=== PATIENT | male | born 1955 | race Caucasian/White ===

== ENCOUNTER → 2022-09-05 08:32 | Outpatient (BNVA) | payer MEDICAID, SELFPAY | PROVIDERS: Family Provider Nurse Practitioner Family; Referring Provider Nurse Practitioner; Visit Provider Podiatrist Foot & Ankle Surgery | DX: S62.305A Unspecified fracture of fourth metacarpal bone, left hand, initial encounter for closed fracture (principal); X58.XXXA Exposure to other specified factors, initial encounter; Z79.84 Long term (current) use of oral hypoglycemic drugs; E11.9 Type 2 diabetes mellitus without complications; R60.9 Edema, unspecified | CPT/HCPCS: 99204 ==

== ENCOUNTER → 2022-09-26 09:22 | Outpatient (BNVA) | payer MEDICAID, SELFPAY | PROVIDERS: Family Provider Nurse Practitioner Family; Visit Provider Podiatrist Foot & Ankle Surgery | DX: S92.302A Fracture of unspecified metatarsal bone(s), left foot, initial encounter for closed fracture (principal); X58.XXXA Exposure to other specified factors, initial encounter; E11.9 Type 2 diabetes mellitus without complications; R60.9 Edema, unspecified; Z79.84 Long term (current) use of oral hypoglycemic drugs | CPT/HCPCS: 73630; 99213 ==

== ENCOUNTER → 2022-10-22 14:29 | Outpatient (BNVA) | payer MEDICAID, SELFPAY | PROVIDERS: Family Provider Nurse Practitioner Family; Visit Provider Podiatrist Foot & Ankle Surgery | DX: S92.342A Displaced fracture of fourth metatarsal bone, left foot, initial encounter for closed fracture (principal); X58.XXXA Exposure to other specified factors, initial encounter | CPT/HCPCS: 73630; 99213 ==

== ENCOUNTER → 2022-11-05 15:04 | Outpatient (BNVA) | payer MEDICAID, SELFPAY | PROVIDERS: Family Provider Nurse Practitioner Family; Visit Provider Podiatrist Foot & Ankle Surgery | DX: S92.302A Fracture of unspecified metatarsal bone(s), left foot, initial encounter for closed fracture (principal); X58.XXXA Exposure to other specified factors, initial encounter | CPT/HCPCS: 99213 ==

== ENCOUNTER → 2022-12-02 10:57 | Outpatient (BNVA) | payer MEDICAID, SELFPAY | PROVIDERS: Family Provider Nurse Practitioner Family; Referring Provider Nurse Practitioner; Visit Provider Orthopaedic Surgery | DX: M48.062 Spinal stenosis, lumbar region with neurogenic claudication (principal) | CPT/HCPCS: 72110; 99204 ==

== ENCOUNTER 2022-12-11 08:47 | Outpatient (CLI) | payer MEDICAID, SELFPAY ==
--- NOTE | 2022-12-11 09:12 | MR_ITS ---
WS: [id number] MRI LUMBAR SPINE NONCONTRAST HISTORY: ABNORMAL FINDING ON DIAGNOSTIC OF CENTRAL NERVOUS SYSTEM SYSTEM COMPARISON: Radiograph 12/02/2022 lumbar spine TECHNIQUE: Sagittal and axial multisequence imaging is submitted. Localizer image demonstrates narrowing of the cervical canal. C3-4 mild stenosis. C6-7 central disc p rotrusion and at least moderate central stenosis. Additional disc protrusions at T7-8 and T8-9. Mild straightening of the normal lumbar lordosis. L4 retrolisthesis by 2 mm. Moderate disc space narr owing at L4-5. Reactive marrow edema along the L4 and L5 endplates. No acute fractures. Conus terminates normally at L1. L1-L2: Very mild foraminal encroachment predominantly by facet disease. No high-grade stenosis. L2-L3: Mild annular disc bulging, ligamentum flavum and facet arthritis. Mild bilateral subarticular recess encroachment. Affecting the L3 traversing nerve roots. L3-L4: Moderate annular disc bulging with osteophytic ridging, ligamentum flavum hypertrophy and kate ed facet arthritis. RIGHT foraminal disc protrusion with contact on the RIGHT L3 and L4 nerve roots. Mild central stenosis also due to the degenerative changes and mild LEFT subarticular recess encroach ment upon the traversing L4 nerve root. L4-L5: Mild retrolisthesis of L4. Osteophytic ridging and annular disc bulging. Small central disc pr otrusion extends just inferior to the disc space. Moderate central stenosis. Disc extrusion is contac ting the traversing L5 nerve roots in the subarticular recesses. Additional moderate to severe bilate ral foraminal stenosis. L5-S1: Mild disc bulging with a central protrusion. Mild encroachment upon the S1 nerve roots, RIGHT greater than LEFT. Mild bilateral subarticular recess and foraminal stenosis. MR/MR lumbar spine wo con* [id number] IMPRESSION: 1. Advanced degenerative disc disease at L4-5. 2. Moderate central and bilateral subarticular recess stenosis at L4-5 due to combination of disc, facet and osteophyte disease. 3. Moderate to severe bilateral foraminal stenosis at C4-5. 4. Mild bilateral subarticular recess encroachment at L3-4 contacting the og ersing L3 nerve roots. 5. RIGHT foraminal disc protrusion at L3-4 contacting the RIGHT L3 and L4 nerv e roots. 6. Mild central, subarticular recess and foraminal stenosis at L3-4.
== END 2022-12-11 08:48 | disposition home or self-care (01) ==
PROVIDERS: PCP Nurse Practitioner; Visit Provider Nurse Practitioner
DX: M51.36 Other intervertebral disc degeneration, lumbar region (principal); M48.061 Spinal stenosis, lumbar region without neurogenic claudication; M47.816 Spondylosis without myelopathy or radiculopathy, lumbar region; M51.26 Other intervertebral disc displacement, lumbar region
CPT/HCPCS: 72148

== ENCOUNTER → 2022-12-23 13:12 | Outpatient (BNVA) | payer MEDICAID, SELFPAY | PROVIDERS: PCP Nurse Practitioner; Visit Provider Orthopaedic Surgery | DX: M48.062 Spinal stenosis, lumbar region with neurogenic claudication (principal) | CPT/HCPCS: 99214 ==

== ENCOUNTER → 2023-01-14 09:40 | Outpatient (BNVA) | payer MEDICAID, SELFPAY | PROVIDERS: PCP Nurse Practitioner; Visit Provider Anesthesiology Pain Medicine | DX: M48.062 Spinal stenosis, lumbar region with neurogenic claudication (principal); M79.605 Pain in left leg | CPT/HCPCS: 99205 ==

== ENCOUNTER → 2023-02-04 14:34 | Outpatient (BNVA) | payer MEDICAID, SELFPAY | PROVIDERS: PCP Nurse Practitioner; Visit Provider Anesthesiology Pain Medicine | DX: M54.16 Radiculopathy, lumbar region (principal); M48.062 Spinal stenosis, lumbar region with neurogenic claudication | CPT/HCPCS: 64483; 64484; J1100; J3490 ==

== ENCOUNTER → 2023-02-18 13:01 | Outpatient (BNVA) | payer MEDICAID, SELFPAY | PROVIDERS: PCP Nurse Practitioner; Visit Provider Anesthesiology Pain Medicine | DX: M54.16 Radiculopathy, lumbar region (principal); M48.062 Spinal stenosis, lumbar region with neurogenic claudication | CPT/HCPCS: 64483; 64484; J1100; J3490 ==

== ENCOUNTER → 2023-03-09 08:46 | Outpatient (BNVA) | payer MEDICAID, SELFPAY | PROVIDERS: PCP Nurse Practitioner; Visit Provider Podiatrist Foot & Ankle Surgery | DX: S92.302D Fracture of unspecified metatarsal bone(s), left foot, subsequent encounter for fracture with routine healing; X58.XXXD Exposure to other specified factors, subsequent encounter | CPT/HCPCS: 99213 ==

== ENCOUNTER → 2025-03-21 08:24 | Outpatient (BNVA) | payer MEDICAID, SELFPAY | PROVIDERS: PCP Nurse Practitioner; Visit Provider Orthopaedic Surgery | DX: M25.561 Pain in right knee (principal); M25.562 Pain in left knee; M17.0 Bilateral primary osteoarthritis of knee; M10.9 Gout, unspecified; E11.9 Type 2 diabetes mellitus without complications; Z79.84 Long term (current) use of oral hypoglycemic drugs | CPT/HCPCS: 73560; 73565; 99204 ==

== ENCOUNTER 2025-05-02 13:04 | Inpatient (IN) | payer MEDICAID, SELFPAY ==
[2025-05-02] VITALS (8 sets, daily range): BP systolic 103–139; BP diastolic 60–85; PULSE 95–147; RESP 17–27; TEMP 36.4–40.4; O2SAT 89–98; BMI 29.8
--- NOTE | 2025-05-02 13:08 | XRR_ITS ---
PROCEDURE INFORMATION: Exam: XR Chest Exam date and time: 05/02/2025 1:28 PM Age: 69 years old Clinical indication: Other: AMS; Additional info: Weakness TECHNIQUE: Imaging protocol: Radiologic exam of the chest. Views: 1 view. COMPARISON: No relevant prior studies available. FINDINGS: Lungs: Low lung volumes. No focal consolidation. Pleural spaces: No pleural effusion or pneumothorax. Heart/Mediastinum: No cardiomegaly. Bones/joints: No acute osseous abnormality. Gastrointestinal tract: Nonspecific bowel gas in the left upper quadrant. XR/XR chest 1V portable [id number] IMPRESSION: No acute pulmonary process.
--- NOTE | 2025-05-02 13:15 | PC.NURSE ---
upon triage, took patients temp orally and read 97.6. patient felt hot to the touch, reported to provider dr. tim that temp did not seem accurate. reported to primary nurse, jose, and advised rectal temp. primary nurse verbalized understanding and took rectal temp of 104.8 and reported to provider.
--- NOTE | 2025-05-02 13:15 | ECG_ITS ---
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 Measurements Intervals [place] Rate: 140 P: 21 [place]: 113 QRS: 39 QRSD: 92 T: 41 QT: 305 QTc: 466 Interpretive Statements SINUS TACHYCARDIA WITH SHORT [place] INTERVAL, POSSIBLE ATRIAL FLUTTER MINIMAL ST DEPRESSION [0.025+ mV ST DEPRESSION] No previous ECG available for comparison Electronically Signed On 05-03-2025 16:54:30 CDT by Gabo Diaz M.D. [email or web address] [id number]
--- NOTE | 2025-05-02 13:19 | W.ED.AMS ---
HPI - Altered Mental Status General: Chief Complaint: Altered Mental Status Stated Complaint: AMS Time Seen by Provider: 05/02/25 13:14 History of Present Illness: 69-year-old man with a history of dementia, hypertension, diabetes, COPD, gout, GERD and hyperlipidemia who presents to the emergency room with altered mental status. Family says he has been declining for about 3 days now. Patient is febrile with a temp of 104.8 on presentation. He is tachycardic. Confused and somewhat agitated. No focal deficits. He has dementia but since Thursday he has been shaky and hot to the touch. Foul urine smell. He is not following commands at this time. He is ambulatory with assistance Related Data Home Medications ?Medication ?Instructions ?Recorded ?Confirmed lisinopril 10 mg tablet 10 mg PO DAILY 09/05/22 05/02/25 metformin 1,000 mg tablet 1,000 mg PO BIDWMEAL 09/05/22 05/02/25 pantoprazole 40 mg tablet,delayed 40 mg PO DAILY 09/05/22 05/02/25 release cetirizine 10 mg tablet 10 mg PO DAILY 03/21/25 05/02/25 cholecalciferol (vitamin D3) 50 50 mcg PO DAILY 03/21/25 05/02/25 mcg (2,000 unit) capsule fluticasone propionate 50 1 spray intranasal DAILY 03/21/25 05/02/25 mcg/actuation nasal spray,suspension olopatadine 0.2 % eye drops 1 drp ophthalmic (eye) DAILY 03/21/25 05/02/25 simvastatin 40 mg tablet 40 mg PO QPM 03/21/25 05/02/25 solifenacin 10 mg tablet 10 mg PO DAILY 05/02/25 05/02/25 Previous Rx's ?Medication ?Instructions ?Recorded Cam boot #1 ea 09/26/22 Allergies Allergy/AdvReac Type Severity Reaction Status Date / Time Penicillins Allergy Mild ADR-Itching Verified 03/21/25 08:44 Review of Systems General: Reports: ROS unobtainable due to medical condition and ROS unobtainable due to mental status [facility] PFSH: Family History Brother Stroke Father Stroke Social History (Reviewed 05/02/25 @ 08:58 by CLINTON Pham Smoking and tobacco/nicotine status: former use of tobacco/nicotine Physical Exam Narrative: General: Alert, Skin: Warm, dry. Head: Normocephalic, atraumatic. Neck: Supple, trachea midline. Eye: Extraocular movements are intact. Ears, nose, mouth and throat: mucosa moist. Cardiovascular: Regular, tachycardic, normal peripheral perfusion. Respiratory: Lungs are clear to auscultation, respirations are non-labored, breath sounds are equal, Symmetrical chest wall expansion. Gastrointestinal: Soft, Nontender, Non distended Musculoskeletal: Normal ROM, no deformity. Neurological: Patient is alert but very confused. No localizing deficits. No facial droop. No slurred speech. No focal extremity deficits. Psychiatric: Patient is somewhat agitated Course Vital Signs: Vital signs: Vital Signs Temperature 104.8 F H 05/02/25 13:55 Pulse Rate 113 H 05/02/25 16:50 Respiratory Rate 17 05/02/25 16:50 Blood Pressure 128/70 05/02/25 16:50 Pulse Oximetry 97 05/02/25 16:50 Oxygen Delivery Me thod Room Air 05/02/25 16:50 MDM - Altered Mental Status Medical Decision Making Medical decision making: Differential diagnosis including but not limited to and based on the above HPI, review of systems and physical exam: In this patient with altered mental status: Stroke. Hypoglycemia. Metabolic encephalopathy. Infections such as pneumonia, urinary tract infection, Covid-19, Influenza. Electrolyte abnormalities such as hypernatremia. Renal failure / uremia. Hepatic encephalopathy. Hypoxemia. Hypercapnic respiratory failure. Psychosis. Drug or alcohol intoxication. Medication overdose. Orders placed to evaluate differential diagnosis based on the above differential, HPI and physical exam EKG: Time 1315. Rate 140. A flutter versus sinus tachycardia, minimal ST changes, no ectopy, normal [place] & QRS intervals, This was reviewed and interpreted by myself the ER physician at 1320 Chest x-ray: No acute process. No infiltrate. No pneumothorax. This was reviewed and interpreted by myself the emergency room physician. I also reviewed the radiology report. Lab Review: Laboratory results were reviewed and interpreted by myself the emergency room physician. Significant leukocytosis with a white count of 17,000. This was reported around 1340. That in combination with confusion and tachycardia I have ordered 2 L normal saline bolus and broad-spectrum antibiotics at that time. Also his initial lactate was elevated at 3 and was come down to 1.5. I reviewed the patient's medical record. 69-year-old man with a history of dementia, hypertension, diabetes, COPD, gout, GERD and hyperlipidemia. Patient has had visits with orthopedics and podiatry but apparently does not receive primary care services from this facility Reexamination: Patient's tachycardia has improved some. Heart rate is down to 117. Systolic blood pressure is 126. No oxygen requirements. He is somewhat somnolent as he received some Haldol because he was quite agitated. Consultation: I spoke with Dr. Ordonez who is on-call for the hospital service who agrees to admission. Assessment and plan: Sepsis Encephalopathy Fever Metabolic encephalopathy ?Patient has received fluids for tachycardia. ?IV Tylenol for fever. ?5 mg IV Haldol for agitation which is improved his symptoms quite a bit. ?No clear source at this point urine is negative. Chest x-ray is clear. Flu COVID and RSV are negative. Treating as presumed sepsis anyway as he is tachycardic encephalopathic and febrile. -2.5 L normal saline bolus. Fluid volumes based on ideal body weight. -Broad-spectrum antibiotics were administered. Meropenem and Zyvox -Sepsis quality measures. -Lactic acid with a reflex was ordered. -Blood cultures were ordered. ?I reevaluated the patient's volume status after sepsis fluids were given. -I discussed the patient with the hospitalist on-call who is admitting the patient. - Discussed findings and plan with patient. Answered any questions. - All laboratory values were reviewed and interpreted personally by myself, the ER physician - All imaging was reviewed and interpreted personally by myself, the ER physician. - Evaluation and treatment of this problem were appropriate in the emergency setting Critical Care: -I spent a total of 44 minutes of critical care time managing the patient, independent of any other practitioner. -The time involved in the performance of separately reportable procedures was not counted towards critical care time. Lab Data 05/02/25 13:25 05/02/25 13:25 Radiology Impressions Chest X-Ray 05/02/25 13:08 IMPRESSION: No acute pulmonary process. Head CT 05/02/25 13:34 IMPRESSION: 1. No acute intracranial hemorrhage or edema. 2. Mild to moderate cerebral and cerebellar atrophy. 3. Moderate small vessel disease. Laboratory Results WBC 16.95 10^3/uL (3.29-11.43) H 05/02/25 13:25 RBC 4.70 10^6/uL (3.85-5.65) 05/02/25 13:25 Hgb 14.10 g/dL (11.27-16.99) 05/02/25 13:25 Hct 43.3 % (37-53) 05/02/25 13:25 MCV 92.1 fl (82-101) 05/02/25 13:25 MCH 30.0 pg (27-33) 05/02/25 13: MCHC 32.6 g/dL (30-55) 05/02/25 13:25 RDW 12.2 % (12.1-15.1) 05/02/25 13:25 Plt Count 235 10^3/cmm (157-399) 05/02/25 13: MPV 11.1 fL (7.4-10.4) H 05/02/25 13:25 Neut % (Auto) 84.5 % 05/02/25 13:25 Lymph % (Auto) 4.6 % 05/02/25 13:25 [place] % (Auto) 10.3 % 05/02/25 13:25 Eos % (Auto) 0.0 % 05/02/25 13:25 Baso % (Auto) 0.2 % 05/02/25 13:25 Neut # (Auto) 14.33 10^3/uL (1.8-7.7) H 05/02/25 13:25 Lymph # (Auto) 0.8 10^3/uL (0.8-4.8) 05/02/25 13:25 [place] # (Auto) 1.7 10^3/uL (0.2-0.9) H 05/02/25 13:25 Eos # (Auto) 0.0 10^3/uL (0.0-0.8) 05/02/25 13:25 Baso # (Auto) 0.0 10^3/uL (0.0-0.1) 05/02/25 13:25 Nucleated RBC % (auto) 0 % 05/02/25 13:25 Nucleated RBCs # 0.0 /100WBC 05/02/25 13: PT 14.50 SECONDS (12.1-14.9) 05/02/25: INR 1.05 (0.8-1.2) 05/02/25 13: Specimen Type Arterial 05/02/25 16:33 Sample Site Radial, right 05/02/25 16:33 ABG pH 7.42 (7.35-7.45) 05/02/25 16:33 ABG pCO2 31.8 mmHg (35-45) L 05/02/25 16:33 ABG pO2 51.3 mmHg (80.0-100.0) L 05/02/25 16:33 ABG PO2/FiO2 Ratio 244 05/02/25 16:33 ABG HCO3 20.7 mmol/L (22-26) L 05/02/25 16:33 ABG O2 Saturation 92.6 05/02/25 16:33 ABG Base Excess -2.9 mmol/L (-2.0-2.0) L 05/02/25 16:33 Kwaku Test Pos 05/02/25 16:33 A-a O2 Gradient 7.7 mmHg (5-10) 05/02/25 16:33 Hematocrit 38.6 % (42-52) L 05/02/25 16:33 Hgb O2 Saturation 91.3 % (95-100) L 05/02/25 16:33 Carboxyhemoglobin 1.2 %THgb (0.4-20.1) 05/02/25 16:33 Methemoglobin 0.2 % (0.4-1.5) L 05/02/25 16:33 Total Hemoglobin 12.6 g/dL (14-18) L 05/02/25 16:33 Sodium 141.0 mmol/L (131-143) 05/02/25 16:33 Potassium 3.9 mmol/L (3.5-5.0) 05/02/25 16:33 Glucose 184.0 mg/dL (70-115) H 05/02/25 16:33 Ionized Calcium 1.2 mmol/L (1.1-1.4) 05/02/25 16:33 O2 Delivery Device Room air 05/02/25 16:33 FiO2 21.0 % 05/02/25 16:33 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 Operator ID [place] 05/02/25 16:33 Sodium 140 mmol/L (136-145) 05/02/25 13:25 Potassium 4.4 mmol/L (3.5-5.1) 05/02/25 13:25 Chloride 101 mmol/L (98-107) 05/02/25 13:25 Carbon Dioxide 19 mmol/L (22-29) L 05/02/25 13:25 Anion Gap 24.4 (5-19) H 05/02/25 13:25 BUN 26 mg/dL (8-23) H 05/02/25 13:25 Creatinine 1.5 mg/dL (0.7-1.2) H 05/02/25 13:25 GFR Calculation 46.3 mL/min (90-130) L 05/02/25 13:25 Glucose 191 mg/dL (65-115) H 05/02/25 13:25 Calculated Osmolality 300 mOsm/kg (285-295) H 05/02/25 13:25 Lactic Acid 3.0 mmol/L (0.5-2.2) H 05/02/25 13:25 Lactic Acid (Sepsis) 1.5 mmol/L (0.5-2.2) 05/02/25 15:20 Calcium 9.7 mg/dL (8.5-10.5) 05/02/25 13:25 Phosphorus 3.7 mg/dL (2.5-4.5) 05/02/25 13:25 Magnesium 1.6 mg/dL (1.7-2.3) L 05/02/25 13:25 Total Bilirubin 1.1 mg/dL (0.15-1.2) 05/02/25 13:25 AST 31 U/L (0-40) 05/02/25 13:25 ALT 29 U/L (0-41) 05/02/25 13:25 Alkaline Phosphatase 137 U/L (40-130) H 05/02/25 13:25 Troponin T Baseline 17 ng/L (0-15) H 05/02/25 13:25 Troponin T 120 Minute 16.09 ng/L (0-15) H 05/02/25 15:20 Delta Troponin T -0.91 ABS# (0-10) L 05/02/25 15:20 NT-Pro-B Natriuret Pep 179 pg/mL (0-125) H 05/02/25 13:25 Total Protein 7.4 g/dL (6.6-8.7) 05/02/25 13: Albumin 4.1 g/dL (3.5-5.2) 05/02/25 13: Globulin 3.3 g/dL (1.3-4.6) 05/02/25 13:25 Procalcitonin 0.32 ng/mL (0-0.5) 05/02/25 13:25 Urine Color Dark yellow (Yellow) A 05/02/25 15:42 Urine Appearance Cloudy (CLEAR) A 05/02/25 15:42 Urine pH 5.0 (5-7) 05/02/25 15:42 Ur Specific [place] 1.027 (1.005-1.030) 05/02/25 15:42 Urine Protein 2+ (Negative) A 05/02/25 15:42 Urine Glucose (UA) Trace (Normal) H 05/02/25 15:42 Urine Ketones 1+ (Negative) H 05/02/25 15:42 Urine Blood Negative (Negative) 05/02/25 15:42 Urine Nitrate Negative (Negative) 05/02/25 15:42 Urine Bilirubin Negative (Negative) 05/02/25 15:42 Urine Urobilinogen 1.0 mg/dL (Negative) 05/02/25 15:42 Ur Leukocyte Esterase Negative (Negative) 05/02/25 15:42 Urine RBC 0-4 /hpf (0-2) H 05/02/25 15:42 Urine WBC 0-4 /hpf (0-5) H 05/02/25 15:42 Ur Squamous Epith Cells 0-4 /hpf (0-5) H 05/02/25 15:42 Amorphous Sediment 3+ /hpf 05/02/25 15:42 Urine Bacteria Trace /hpf (NONE) 05/02/25 15:42 Influenza A (PCR) Negative (Negative) 05/02/25 14:59 Influenza Type B (PCR) Negative (Negative) 05/02/25 14:59 RSV (PCR) Negative (Negative) 05/02/25 14:59 SARS-CoV-2 (PCR) Negative (Negative) 05/02/25 14:59 All radiology interpretation(s) finalized by discharge Discharge Plan Discharge Patient Disposition: Admitted As Inpatient Clinical Impression: Fever, Encephalopathy acute, Dementia, Sepsis Condition: Stable Coding Level of Care Code ED Cia Agent for Jarrod Kapadia
--- NOTE | 2025-05-02 13:34 | CT_ITS ---
WS: [id number] CT HEAD NONCONTRAST HISTORY: Encephalopathy, altered mental status TECHNIQUE: Contiguous axial imaging performed through the brain. Bone and soft tissue windows. Sagittal and coronal reformats reviewed. All CT scans at [facility] use at least one of these dose optimization techniques: automated exposure control; mA and/or kV adjustment per patient size (includes targeted exams where dose is matched to clinical indication); or iterative reconstruction. DLP: 2022.73 mGy.cm COMPARISON: None available. No acute intracranial hemorrhage, midline shift or mass effect. Mild to moderate cerebral and cerebellar atrophy with small vessel changes. No prior large infarct. Ventricles: Ventricles and extra-axial spaces are dilated on the basis of atrophy. Paranasal sinuses: As visualized are clear. Mastoid air cells: Well pneumatized. Calvarium and scalp: Skull is intact with no soft tissue edema or swelling. CT/CT head wo con* [id number] IMPRESSION: 1. No acute intracranial hemorrhage or edema. 2. Mild to moderate cerebral and cerebellar atrophy. 3. Moderate small vessel disease.
[2025-05-02 13:40] LABS: Hematocrit 43.3 % (37-53); Hemoglobin 14.10 g/dL (11.27-16.99); Mean Corpuscular HGB Conc 32.6 g/dL (30-55); Mean Corpuscular Hemoglobin 30.0 pg (27-33); Mean Corpuscular Volume 92.1 fl (82-101); Nucleated Red Blood Cells % 0 %; Platelet Count 235 10^3/cmm (157-399); Red Blood Count 4.70 10^6/uL (3.85-5.65); White Blood Count 16.95 10^3/uL (3.29-11.43)
[2025-05-02] MEDS: acetaminophen 1,000 MG/100 ML PIGGYBACK 400 MG IV (13:42)
[2025-05-02 14:01] LABS: Lactic Sepsis W/Reflex 3.0 mmol/L (0.5-2.2)
[2025-05-02 14:03] LABS: Troponin(5th) Baseline 17 ng/L (0-15)
[2025-05-02 14:13] LABS: NT Pro B Type Natriuretic Pept 179 pg/mL (0-125); Procalcitonin 0.32 ng/mL (0-0.5)
[2025-05-02 14:24] LABS: Alanine Aminotransferase 29 U/L (0-41); Albumin Level 4.1 g/dL (3.5-5.2); Alkaline Phosphatase 137 U/L (40-130); Blood Urea Nitrogen 26 mg/dL (8-23); Calcium 9.7 mg/dL (8.5-10.5); Carbon Dioxide 19 mmol/L (22-29); Chloride 101 mmol/L (98-107); Creatinine Clr Calc Pharmacy 45.9789; Globulin 3.3 g/dL (1.3-4.6); Glucose 191 mg/dL (65-115); Osmolality Calculated 300 mOsm/kg (285-295); Sodium 140 mmol/L (136-145); Total Protein 7.4 g/dL (6.6-8.7)
[2025-05-02 14:26] LABS: Anion Gap 24.4 (5-19); Aspartate Amino Transferase 31 U/L (0-40); Potassium 4.4 mmol/L (3.5-5.1)
[2025-05-02] MEDS: linezolid premix 600 MG/300 ML PREMIX 300 MG IV (14:43)
[2025-05-02] MEDS: haloperidol inj 5 mg/mL INJ 1 mL IVP (14:43)
--- NOTE | 2025-05-02 15:19 | ECG_ITS ---
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 Measurements Intervals [place] Rate: 123 P: 168 [place]: 114 QRS: 161 QRSD: 97 T: 140 QT: 408 QTc: 586 Interpretive Statements ECTOPIC ATRIAL TACHYCARDIA WITH SHORT [place] INTERVAL POSSIBLE RIGHT VENTRICULAR HYPERTROPHY [SOME/ALL OF: PROMINENT R IN V1, LATE TRANSITION, RAD, DONOVAN, SSS] NONSPECIFIC T-WAVE ABNORMALITY Compared to ECG 05/02/2025 13:15:53 T-wave abnormality now present ST (T wave) deviation no longer present Baseline artifacts, need to repeat Electronically Signed On 05-10-2025 23:03:39 CDT by Zafar Kemp M.D. [id number] [id number]
[2025-05-02 15:22] LABS: Reflex Lactate Order REFLEX LACTIC ORDERD
[2025-05-02 15:53] LABS: Glucose Urine UA Trace (Normal); Nitrate Urine Negative (Negative); Specific Gravity, Urine 1.027 (1.005-1.030)
[2025-05-02 16:01] LABS: Respiratory Syncytial Virus Ce NEGATIVE (Negative); SARS-CoV-2 PCR NEGATIVE (Negative)
[2025-05-02 16:01] LABS: Troponin 5 2HR 16.09 ng/L (0-15)
[2025-05-02 16:02] LABS: Lactic Acid level (Lactate) 1.5 mmol/L (0.5-2.2)
[2025-05-02 16:05] LABS: Troponin 5 2HR Delta -0.91 ABS# (0-10)
[2025-05-02 16:44] LABS: ABG PCO2 31.8 mmHg (35-45); ABG PH Result 7.42 (7.35-7.45); Alveolar-Arterial Oxygen Gradi 7.7 mmHg (5-10); Arterial Blood Gas Hematocrit 38.6 % (42-52); Blood Gas Allen Test Pos; Blood Gas Operator Identificat WALCI; Blood Gas Sample Site Radial, right; Blood Gas Sample Type Arterial; Carboxyhemoglobin 1.2 %THgb (0.4-20.1); Glucose Level-ABG 184.0 mg/dL (70-115); HCO3 ABG 20.7 mmol/L (22-26); Ionized Calcium Level - ABG 1.2 mmol/L (1.1-1.4); Methemoglobin 0.2 % (0.4-1.5); Oxygen Saturation ABG 92.6; PO2 ABG 51.3 mmHg (80.0-100.0); PO2 FiO2 Ratio Arterial Blood 244; Potassium Level - ABG 3.9 mmol/L (3.5-5.0); Sodium Level - ABG 141.0 mmol/L (131-143)
--- NOTE | 2025-05-02 16:44 | ECG_ITS ---
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 Measurements Intervals [place] Rate: 112 P: 33 [place]: 128 QRS: 39 QRSD: 90 T: 30 QT: 344 QTc: 471 Interpretive Statements SINUS TACHYCARDIA POSSIBLE RIGHT VENTRICULAR CONDUCTION DELAY [RSR (QR) IN V1/V2] NONSPECIFIC T-WAVE ABNORMALITY ABNORMAL RHYTHM ECG Compared to ECG 05/02/2025 15:18:20 Short [place] interval no longer present T-wave abnormality still present Electronically Signed On 05-09-2025 20:02:28 CDT by Zafar Kemp M.D. [email or web address] [id number]
--- NOTE | 2025-05-02 16:51 | PM.HP ---
Providers/Chief Complaint Primary Care Provider: ANA PAULA Cota Chief Complaint: AMS History of Present Illness History taken through conversation with family members at bedside. Mehul Clayton is a 69 year old male with past medical history of dementia, hypertension, hyperlipidemia presents to the ER today from home because of being more confused than usual, complaining of neck pain and back pain along with episodes of nausea which has been getting worse since Thursday. Today is Thursday. As per family member he has also been complaining of pain on the right side of the jaw. On presentation in the ER he was found to have a rectal temperature of more than 104 Fahrenheit, heart rate of 120 bpm with a blood pressure of 136/80 mmHg. Review of Systems General: Reports: ROS unobtainable due to mental status Medications/Allergies Home Medications ?Medication ?Instructions ?Recorded ?Confirmed ?Last Taken ?Type lisinopril 10 mg tablet 10 mg PO DAILY 09/05/22 05/02/25 05/02/25 History metformin 1,000 mg tablet 1,000 mg PO BIDWMEAL 09/05/22 05/02/25 05/02/25 History pantoprazole 40 mg tablet,delayed 40 mg PO DAILY 09/05/22 05/02/25 05/02/25 History release Cam boot #1 ea 09/26/22 05/02/25 Unknown Rx cetirizine 10 mg tablet 10 mg PO DAILY 03/21/25 05/02/25 05/02/25 History cholecalciferol (vitamin D3) 50 50 mcg PO DAILY 03/21/25 05/02/25 05/02/25 History mcg (2,000 unit) capsule fluticasone propionate 50 1 spray intranasal DAILY 03/21/25 05/02/25 05/02/25 History mcg/actuation nasal spray,suspension olopatadine 0.2 % eye drops 1 drp ophthalmic (eye) DAILY 03/21/25 05/02/25 05/02/25 History simvastatin 40 mg tablet 40 mg PO QPM 03/21/25 05/02/25 05/01/25 History solifenacin 10 mg tablet 10 mg PO DAILY 05/02/25 05/02/25 05/02/25 History Allergies Allergy/AdvReac Type Severity Reaction Status Date / Time Penicillins Allergy Mild ADR-Itching Verified 03/21/25 08:44 PFSH Acute PFSH: Medical History (Updated 05/02/25 @ 17:32 by Justino Ordonez MD) Type 2 diabetes mellitus Dementia Hypertension Family History Brother Stroke Father Stroke Social History Smoking and tobacco/nicotine status: former use of tobacco/nicotine Vitals/I&O/Wt Last Vital Signs Temp 104.8 F H 05/02/25 13:55 Pulse 113 H 05/02/25 16:50 Resp 17 05/02/25 16:50 BP 128/70 05/02/25 16:50 Pulse Ox 97 05/02/25 16:50 O2 Del Method Room Air 05/02/25 16:50 Weight last 48 hrs Weight 81.647 kg Physical Exam Narrative: General: No acute distress, AO x1-2 HEENT: PERRLA, pupils bilaterally equal and reactive Chest: Normal vesicular breath sounds, no added sounds, equal good air entry bilaterally CVS: S1-S2 regular, no murmurs, no tachycardia, no gallops, no rubs Abdomen: Soft, nontender, no organomegaly, bowel sounds present Neuro: No focal deficits, no facial deformity, AO x3, power 5/5 in all limbs Data 05/02/25 13:25 05/02/25 13:25 Micro: Microbiology 05/02/25 13:25 Blood Culture - Preliminary Blood SPECIMEN COLLECTED 05/02/25 13:28 Blood Culture - Preliminary Blood SPECIMEN COLLECTED A&P Assessment and plan 1. Sepsis: SIRS: Tachycardic, Febrile, Leukocytosis Source: Unknown source. Possible meningitis versus odontogenic infection End organ damage: Acute infectious encephalopathy Lactic acid elevated. Patient did receive full 30 mL/kg BW. Continue NS at 75 cc/h. Monitor blood pressures. Keep mean artery pressure 65 mmHg. Follow-up blood culture, check MRSA swab, trend procalcitonin, check bacterial antigen. Will request for lumbar puncture for further evaluation and management. Will request for CT of the jaw to rule out underlying abscess. Check respiratory viral panel. De-escalate antibiotics as per culture results. 2. Encephalopathy acute: 3. Hypertension: Goal blood pressure less than 140/90 mmHg. Blood pressure stable. Does take lisinopril at home. Tachycardic on admission. Start on metoprolol 2.5 mg one-time IV. Hold off on lisinopril. 4. Type 2 diabetes mellitus: Check A1c. Insulin sliding scale at low-dose protocol. 5. Dementia: Start on Celexa 20 mg daily, donepezil 10 mg nightly. Haldol 1 mg every 4 hours as needed for agitation. Plan: CODE STATUS: Spouse will be DPOA. Discussed in detail with spouse and daughter at bedside. Full code Clear liquid diet Protonix for PUD prophylaxis Heparin for DVT prophylaxis PDMP PDMP Reviewed: Not Reviewed Attestations Medical Necessity Statement*: Admission for more than 2 midnights for management of sepsis with acute encephalopathy in setting of baseline dementia Diagnoses Sepsis A41.9 Encephalopathy acute G93.40 Hypertension I10 Type 2 diabetes mellitus E11.9 Dementia F03.90
--- NOTE | 2025-05-02 16:52 | PC.RESP ---
unable to perform IS or do resp assess and tx at this time due to patient lethargy and unresponsiveness.
[2025-05-02 17:00] LABS: INR 1.05 (0.8-1.2); Prothrombin Time 14.50 SECONDS (12.1-14.9)
--- NOTE | 2025-05-02 17:00 | PHA.VACGOAL ---
Vancomycin Goal - Goal Vancomycin Goal:: 15-20 mg/L Vancomycin Indication:: Other (SEPSIS) - Therapy Current therapy:: Meropenem Day of therpy:: Day []of [] . Actual body weight (kg): 180 lb - Data Labs: WBC 16.95 10^3/uL (3.29-11.43) H 05/02/25 13:25 RBC 4.70 10^6/uL (3.85-5.65) 05/02/25 13:25 Hgb 14.10 g/dL (11.27-16.99) 05/02/25 13:25 Hct 43.3 % (37-53) 05/02/25 13:25 MCV 92.1 fl (82-101) 05/02/25 13:25 MCH 30.0 pg (27-33) 05/02/25 13:25 MCHC 32.6 g/dL (30-55) 05/02/25 13:25 RDW 12.2 % (12.1-15.1) 05/02/25 13:25 Sodium 140 mmol/L (136-145) 05/02/25 13:25 Potassium 4.4 mmol/L (3.5-5.1) 05/02/25 13:25 Chloride 101 mmol/L (98-107) 05/02/25 13:25 Carbon Dioxide 19 mmol/L (22-29) L 05/02/25 13:25 Anion Gap 24.4 (5-19) H 05/02/25 13:25 BUN 26 mg/dL (8-23) H 05/02/25 13:25 Creatinine 1.5 mg/dL (0.7-1.2) H 05/02/25 13:25 GFR Calculation 46.3 mL/min (90-130) L 05/02/25 13:25 Last dialysis session:: N/A Treatment plan:: new consult Regimen:: PER NURSE, PT IS DIAGNOSED WITH SEPSIS. GAVE LOADING DOSE OF 2500 MG. ORDERED MAINTENANCE DOSE OF 1000 MG Q12H. WILL CONTINUE TO MONITOR DAILY AND PLAN TO DRAW TROUGH PRIOR TO 4TH DOSE.
[2025-05-02 17:03] LABS: Magnesium 1.6 mg/dL (1.7-2.3)
[2025-05-02] MEDS: metoprolol tartrate 1 mg/1 mL SDV 5 mL 2.5 MG IVP (17:14)
[2025-05-02] MEDS: pantoprazole 40 mg SDV IVP (17:14)
[2025-05-02] MEDS: meropenem 1,000 mg SDV 1000 MG IVP (17:14)
--- NOTE | 2025-05-02 17:41 | CTR_ITS ---
PROCEDURE INFORMATION: Exam: CT Neck With Contrast Exam date and time: 05/02/2025 6:27 PM Age: 69 years old Clinical indication: Other: Possible odontogenic abscess; Concern for adontogenic abcess. best images poss PT combative and pulling at restraints; Additional info: Possible concern for odontogenic abscess, sepsis TECHNIQUE: Imaging protocol: Computed tomography of the neck with contrast. Total images: 3 Radiation optimization: All CT scans at this facility use at least one of these dose optimization techniques: automated exposure control; mA and/or kV adjustment per patient size (includes targeted exams where dose is matched to clinical indication); or iterative reconstruction. Contrast material: [id number]; Contrast volume: 100 ml; Contrast route: INTRAVENOUS (IV); COMPARISON: 1. CT head wo con* [id number] 05/02/2025 2:07 PM 2. CR XR chest 1V portable [id number] 05/02/2025 1:28 PM RADIATION DOSE METRICS: Total DLP (mGy-cm): 270.14 FINDINGS: Limitations: Image quality limited by patient motion artifact. Tubes, catheters and devices: Incidental pulmonary intravenous gas bubble(s) likely accounted for by IV catheter placement or/and contrast administration. Paranasal sinuses: The sinuses are normal. Mastoid air cells: Mastoid air cells and tympanic cavities appear aerated without pathologic fluid accumulation. Salivary glands: The parotid and submandibular salivary glands are normal. Teeth: Missing teeth and metallic dental restorations causing minor artifact. Pharynx: Nasopharyngeal; symmetric gonzales, normal adenoid tonsils and normal appearing lateral recesses and Eustachian tube orifices. Oropharynx; normal tonsillar pillars, palatine tonsils, tongue base and vallecula. Hypopharynx; normal piriform sinuses, posterior pharyngeal wall and post cricoid region. Smoothly contoured pharyngeal mucosal surfaces. Pharyngeal airway is patent. Larynx: Larynx; supraglottic, glottic, and subglottic, are symmetric and unremarkable. Epiglottis, aryepiglottic folds, false and true vocal cords are symmetric with no thickening or mass. Paraglottic space and preepiglottic fat are clear. Vocal cords are symmetric without mass or edema. No laryngeal airway narrowing. Thyroid: Thyroid demonstrates one or more small foci that can not be further characterized on the current examination. Largest left thyroid lesion measures 1.3 cm diameter. Left thyroid coarse calcification is indeterminate. Trachea: Trachea minimal left-sided presumed mucus debris, nonobstructive. No tracheomalacia or tracheal narrowing. Lungs: The visualized portions of the lung apices are normal. Lymph nodes: No lymphadenopathy. Vasculature: No major vessel critical narrowing, occlusion, or aneurysm. Bones/joints: Severe chronic generalized degenerative changes of the vertebral column, including multilevel osteophytes, degenerative disc height loss, vacuum disc phenomenon, and facet arthrosis, consistent with patient age. C3-C4 level severe degenerative disc height loss and dorsal disc osteophytic ridge formation narrowing of the neural foramina and spinal canal moderately. C5-C6 level degenerative vacuum disc phenomenon. Bilateral sternoclavicular joint mild chronic degenerative arthrosis. No intrinsic osseous abnormality identified. Spinal epidural space: No pathologic epidural mass, spinal canal hemorrhage or pathologic fluid. Soft tissues: Normal pre-maxillary soft tissues and retro antral fat spaces. CT/CT neck w con* [id number] IMPRESSION: 1. Missing teeth and metallic dental restorations. No active periodontal disease appreciated allowing for metallic artifact and patient motion artifact. If clinical context warrants, dental consultation may be useful. 2. Left thyroid coarse calcification is indeterminate. 3. Advanced age-appropriate degenerative spinal changes, with other chronic/non-acute findings as described above. COMMENTS: 1. Examination limited by patient motion. 2. Consistent with the [employer]'s Incidental Findings Committee white paper (J Am Malu Radiol 2015): In patients aged 35 years and older with an incidental thyroid nodule equal to or greater than 1.[address], MRI or extrathyroidal US, further evaluation with dedicated thyroid US is recommended for patients with normal life expectancy and without comorbidities. For smaller nodules without suspicious features, no further evaluation or follow up is recommended.
[2025-05-02 17:42] LABS: Iron 19 ug/dL (59-158); Thyroid Stimulating Hormone 0.15 uIU/mL (0.27-4.20); Vitamin B12 371 pg/mL (232-1245)
[2025-05-02] MEDS: heparin 5,000 unit/mL INJ 1 mL 5000 UNIT SUBCUT (17:53)
[2025-05-02 18:15] LABS: PCP Screen Urine Negative (Negative)
[2025-05-02 18:28] LABS: Total Iron Binding Capacity 178 mcg/dl; Unsaturated Iron Binding 159 ug/dL (112-347)
[2025-05-02] MEDS: iohexol 350 mg/mL 500 mL Btl (per mL) IV (18:34)
[2025-05-02 18:59] LABS: Estmated Average Glucose 108; Hemoglobin A1C 5.4 % (4.0-6.0)
[2025-05-02 19:17] LABS: Potassium, Radom Urine 68 mmol/L; Urine Random Chloride 88 mmol/L; Urine Random Sodium 80 mmol/L
[2025-05-02 19:49] LABS: Troponin 5 6HR 19.85 ng/L (0-15); Troponin 5 6HR Delta 2.85 ng/L (0-12)
[2025-05-02 20:17] LABS: Free T4 Free Thyroxine 1.20 ng/dL (0.82-1.77)
--- NOTE | 2025-05-02 20:36 | ECG_ITS ---
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 Measurements Intervals [place] Rate: 113 P: 40 CO: 125 QRS: 52 QRSD: 98 T: 52 QT: 319 QTc: 439 Interpretive Statements SINUS TACHYCARDIA INCOMPLETE RIGHT BUNDLE BRANCH BLOCK [90+ ms QRS DURATION, TERMINAL R IN V1/V2, 40+ ms S IN I/aVL/V4/V5/V6] ABNORMAL RHYTHM ECG Compared to ECG 05/02/2025 16:48:24 Incomplete right bundle-branch block now present T-wave abnormality no longer present Electronically Signed On 05-09-2025 20:02:09 CDT by Zafar Kemp M.D. [email or web address]
[2025-05-02] MEDS: morphine 4 mg/mL SDV 1 mL 2 MG IVP (20:37)
[2025-05-02 22:15] LABS: MRSA PCR OZH (swab) NOT DETECTED (Negative)
[2025-05-02] MEDS: haloperidol inj 5 mg/mL INJ 1 mL 1 MG IM (22:38)
[2025-05-03] VITALS (9 sets, daily range): BP systolic 117–149; BP diastolic 58–83; PULSE 97–108; RESP 12–27; TEMP 36.6–37.9; O2SAT 95–97; BMI 29.4
--- NOTE | 2025-05-03 00:37 | PC.NURSE ---
patient stated becoming agitated again around 2229, constantly attempting to pull and pick at catheter and IVs, patient started yelling and becoming verbally aggressive with staff and the patient was hallucinating bugs crawling on the bed at that time as well. IM haldol administered see SEP. At midnight contacted MD for renewal on restraints, order entered
[2025-05-03 01:15] LABS: Coronavirus 229E,HKU1,NL63,OC4 Not Detected (NOT DETECT); Parainfluenza Virus Type 1 Not Detected (NOT DETECT); Parainfluenza Virus Type 2 Not Detected (NOT DETECT); Parainfluenza Virus Type 3 Not Detected (NOT DETECT); Parainfluenza Virus Type 4 Not Detected (NOT DETECT); SARS-COV-2 Not Detected (NOT DETECT)
[2025-05-03 04:04] LABS: Hematocrit 35.3 % (37-53); Hemoglobin 11.40 g/dL (11.27-16.99); Mean Corpuscular HGB Conc 32.3 g/dL (30-55); Mean Corpuscular Hemoglobin 30.3 pg (27-33); Mean Corpuscular Volume 93.9 fl (82-101); Nucleated Red Blood Cells % 0 %; Platelet Count 200 10^3/cmm (157-399); Red Blood Count 3.76 10^6/uL (3.85-5.65); White Blood Count 10.34 10^3/uL (3.29-11.43)
[2025-05-03 04:30] LABS: Alanine Aminotransferase 20 U/L (0-41); Albumin Level 3.2 g/dL (3.5-5.2); Alkaline Phosphatase 99 U/L (40-130); Anion Gap 18.6 (5-19); Aspartate Amino Transferase 19 U/L (0-40); Blood Urea Nitrogen 23 mg/dL (8-23); Calcium 8.6 mg/dL (8.5-10.5); Carbon Dioxide 18 mmol/L (22-29); Chloride 107 mmol/L (98-107); Creatinine Clr Calc Pharmacy 53.6966; Globulin 2.9 g/dL (1.3-4.6); Glucose 114 mg/dL (65-115); Magnesium 1.5 mg/dL (1.7-2.3); Osmolality Calculated 295 mOsm/kg (285-295); Potassium 3.6 mmol/L (3.5-5.1); Sodium 140 mmol/L (136-145); Total Protein 6.1 g/dL (6.6-8.7)
[2025-05-03 04:36] LABS: Cholesterol 91 mg/dL (0-200); HDL Cholesterol 27 mg/dL (60-100); Triglycerides 75 mg/dL (0-150)
[2025-05-03 04:37] LABS: Procalcitonin 0.63 ng/mL (0-0.5)
[2025-05-03] MEDS: meropenem 1,000 mg SDV 1000 MG IVP ×2 (05:11→16:45)
[2025-05-03] MEDS: heparin 5,000 unit/mL INJ 1 mL 5000 UNIT SUBCUT (05:11)
--- NOTE | 2025-05-03 08:00 | FL_ITS ---
WS: [id number] LUMBAR PUNCTURE CLINICAL INFORMATION: encephalopathy TECHNIQUE: Informed consent: The procedure and its potential risk and complications were discussed with the patient. Verbal and written consent was obtained. Timeout: A timeout was performed to confirm correct patient, procedure, and site. Patient was prepped and draped in the usual sterile fashion. Lidocaine 1% was used for local anesthesia. Utilizing fluoroscopic guidance, a 3.5 inch 22-gauge spinal needle was advanced into the subarachnoid space at L3-L4 via LEFT oblique sublaminar approach. Free flow of clear CSF was obtained. 12 cc of CSF was collected and sent the lab for further analysis. FLUOROSCOPIC TIME: 1min [id number] # of spot films: 1 FL/FL guided lumbarpunc dx* [id number] IMPRESSION: Fluoroscopically guided lumbar puncture. No immediate complications
[2025-05-03] MEDS: magnesium sulfate premix 2 GM/50 ML PIGGYBACK IV (09:29)
--- NOTE | 2025-05-03 09:56 | PC.CHAP ---
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 Prayed with family. 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 [x] Prayer [x] Active listening [x] Non-anxious presence [x] Spiritual/emotional support [] Crisis/trauma care [] Spiritual counseling [] Bereavement support [] Provided bereavement packet [] Provided Bible/devotional materials [] Provided toy/stuffed animal, coloring book to patient or family member [] Provided Communion [] Anointing/[place] [] Salvation [x] Completed spiritual assessment [] Other: Impact on Illness or Injury [] Angry [] Fearful [] Anxious [] Often cries [] Exhaustion [] Unable to work [] Unable to attend episcopalian [] Unable to walk/stand [] Unable to read [] Unable to drive [] Unable to eat/drink [] Unable to sleep [] Unable to be with family [] Patient intubated [] Other: Summary Time spent with patient 5 min
[2025-05-03] MEDS: morphine 4 mg/mL SDV 1 mL 2 MG IVP ×3 (11:45→22:51)
[2025-05-03] MEDS: haloperidol inj 5 mg/mL INJ 1 mL IM (13:10)
--- NOTE | 2025-05-03 13:41 | PC.NURSE ---
to radiology for lumbar puncture via bed at this time
--- NOTE | 2025-05-03 13:45 | P.PN_ITS ---
Subjective 2 Subjective: No acute vents overnight. Seen with daughter at bedside. Patient remains on room air. Did receive 1 dose of Haldol overnight the morning on examination laying comfortably in bed, remains fidgety. Hemodynamically stable. Tmax 100.8 Fahrenheit since admission overnight. Vitals/I&O/Wt Last Vital Signs Temp 97.9 F 05/03/25 12:00 Pulse 97 05/03/25 12:00 Resp 19 H 05/03/25 12:00 BP 127/58 05/03/25 12:00 Pulse Ox 97 05/03/25 12:00 O2 Del Method Room Air 05/03/25 03:39 05/02/25 05/03/25 05/03/25 22:59 06:59 14:59 Intake Total 3400 / 3400 1250 / 4650 Output Total 350 / 350 750 / 1100 Balance 3050 / 3050 500 / 3550 Weight last 48 hrs Weight 82.7 kg Weight 83.8 kg Weight 81.647 kg Physical Exam 2 Narrative: General: No acute distress, AO x1-2, fidgety HEENT: PERRLA, pupils bilaterally equal and reactive Chest: Normal vesicular breath sounds, no added sounds, equal good air entry bilaterally CVS: S1-S2 regular, no murmurs, no tachycardia, no gallops, no rubs Abdomen: Soft, nontender, no organomegaly, bowel sounds present Neuro: No focal deficits, no facial deformity, AO x3, power 5/5 in all limbs Urinary Catheter Management: Jeronimo: Cath Placed During This Visit: yes Reason for Continuing Indwelling Catheter: Other Urinary Catheter Date of Insertion: 05/02/25 Urinary Catheter Time of Insertion: 17:24 Data 05/03/25 03:51 05/03/25 03:51 Micro: Microbiology 05/02/25 13:25 Blood Culture - Preliminary Blood NEGATIVE TO DATE 05/02/25 13:28 Blood Culture - Preliminary Blood NEGATIVE TO DATE 05/02/25 15:42 Bacterial Antigens - Final Urine Kidney A&P Assessment and plan 1. Sepsis: SIRS: Tachycardic, Febrile, Leukocytosis Source: Unknown source. Possible meningitis. End organ damage: Acute infectious encephalopathy Lactic acid elevated. Repeat lactic shows normalization. Patient did receive full 30 mL/kg BW. Continue NS at 75 cc/h. Monitor blood pressures. Keep mean artery pressure 65 mmHg. Follow-up blood culture, negative MRSA swab, appreciate trend procalcitonin, negative bacterial antigen. Will request for lumbar puncture for further evaluation and management. Plan for lumbar puncture today. CT of the jaw negative for concern for any abscess. Negative respiratory viral panel. Continue with IV meropenem and vancomycin for now. Dose as per renal functions. De-escalate antibiotics as per culture results. 2. Encephalopathy acute: Most likely in setting of worsening dementia versus metabolic encephalopathy in setting of dementia. 3. Hypertension: Goal blood pressure less than 140/90 mmHg. Blood pressure stable. Does take lisinopril at home. Tachycardia resolved. Continue with metoprolol 25 mg twice daily for now. Holding off on lisinopril. 4. Type 2 diabetes mellitus: A1c 5.4 Does not need sliding scale for now. 5. Dementia: Continue with Celexa 20 mg daily, donepezil 10 mg nightly. Haldol 1 mg every 4 hours as needed for agitation. Plan: CODE STATUS: Spouse will be DPOA. Discussed in detail with spouse and daughter at bedside. Full code Clear liquid diet. Speech therapy evaluation. Protonix for PUD prophylaxis Heparin for DVT prophylaxis. Hold for now as patient is going for lumbar puncture. PDMP PDMP Reviewed: Not Reviewed Attestations 2 Medical Necessity Statement*: Requires further hospitalization for management of sepsis while meningitis is ruled out Diagnoses Sepsis A41.9 Encephalopathy acute G93.40 Hypertension I10 Type 2 diabetes mellitus E11.9 Dementia F03.90
[2025-05-03 14:44] LABS: Cyto Order Verification No Order
[2025-05-03 14:51] LABS: CSF Mononuclear # 0.004 10^3/uL (50-90); Mononuclear WBC CSF % 100 % (50-90); Pathology Referral Yes; Polynuclear Cells ,CSF # 0.000 10^3/uL (0-10); Polynuclear WBC CSF % 0 % (0-10); Red Blood Cell CSF 0 10^3/uL (0-0); White Blood Cell CSF 4 /uL (0-5)
[2025-05-03] MEDS: pantoprazole 40 mg SDV IVP (16:44)
--- NOTE | 2025-05-03 18:01 | PC.SLP ---
Pt has received morphine. RADIOLOGIC ELECTRONIC SPECIALIST will attempt to assess the pt tomorrow.
--- NOTE | 2025-05-03 20:47 | PC.NURSE ---
patient refused telemonitor
[2025-05-04] VITALS: BP 103/66
[2025-05-04 03:34] LABS: Hematocrit 32.8 % (37-53); Hemoglobin 10.80 g/dL (11.27-16.99); Mean Corpuscular HGB Conc 32.9 g/dL (30-55); Mean Corpuscular Hemoglobin 29.9 pg (27-33); Mean Corpuscular Volume 90.9 fl (82-101); Nucleated Red Blood Cells % 0 %; Platelet Count 214 10^3/cmm (157-399); Red Blood Count 3.61 10^6/uL (3.85-5.65); White Blood Count 8.33 10^3/uL (3.29-11.43)
[2025-05-04 03:53] VITALS: BP 101/67
--- NOTE | 2025-05-04 03:54 | PC.NURSE ---
patient in restraints
[2025-05-04 04:00] LABS: Alanine Aminotransferase 15 U/L (0-41); Albumin Level 2.8 g/dL (3.5-5.2); Alkaline Phosphatase 94 U/L (40-130); Anion Gap 19.7 (5-19); Aspartate Amino Transferase 15 U/L (0-40); Blood Urea Nitrogen 21 mg/dL (8-23); Calcium 8.5 mg/dL (8.5-10.5); Carbon Dioxide 16 mmol/L (22-29); Chloride 107 mmol/L (98-107); Creatinine Clr Calc Pharmacy 62.7879; Globulin 3.0 g/dL (1.3-4.6); Glucose 131 mg/dL (65-115); Magnesium 1.8 mg/dL (1.7-2.3); Osmolality Calculated 293 mOsm/kg (285-295); Potassium 3.7 mmol/L (3.5-5.1); Sodium 139 mmol/L (136-145); Total Protein 5.8 g/dL (6.6-8.7)
[2025-05-04] MEDS: meropenem 1,000 mg SDV 1000 MG IVP ×2 (04:20→16:39)
[2025-05-04 08:00] VITALS: BP 142/79; PULSE 74; RESP 16; TEMP 37.1; O2SAT 98
[2025-05-04] MEDS: ondansetron 2 mg/ML SDV 2 mL 4 MG IVP (10:33)
[2025-05-04 12:00] VITALS: BP 134/77; PULSE 93; RESP 15; O2SAT 96
--- NOTE | 2025-05-04 12:03 | P.PN_ITS ---
Subjective 2 Subjective: No acute events overnight. Patient is able to take oral medications now. Waking up with verbal stimulus otherwise sleeping. Sitter and family at bedside. Remains on room air. Vitals/I&O/Wt Last Vital Signs Temp 98.8 F 05/04/25 08:00 Pulse 74 05/04/25 08:00 Resp 16 05/04/25 08:00 BP 142/79 05/04/25 08:00 Pulse Ox 98 05/04/25 08:00 O2 Del Method Room Air 05/03/25 03:39 05/03/25 05/04/25 05/04/25 22:59 06:59 14:59 Intake Total 733.5 / 783.5 1416 / 2199.5 266 / 266 Output Total 650 / 1300 300 / 1600 Balance 83.5 / -516.5 1116 / 599.5 266 / 266 Weight last 48 hrs Weight 81.9 kg Weight 82.7 kg Weight 83.8 kg Weight 81.647 kg Physical Exam 2 Narrative: General: No acute distress, AO x1-2, fidgety HEENT: PERRLA, pupils bilaterally equal and reactive Chest: Normal vesicular breath sounds, no added sounds, equal good air entry bilaterally CVS: S1-S2 regular, no murmurs, no tachycardia, no gallops, no rubs Abdomen: Soft, nontender, no organomegaly, bowel sounds present Neuro: No focal deficits, no facial deformity, AO x3, power 5/5 in all limbs Urinary Catheter Management: Jeronimo: Cath Placed During This Visit: yes Reason for Continuing Indwelling Catheter: Accurate Measurement of Urinary Output in Critically Ill Patients Urinary Catheter Date of Insertion: 05/02/25 Urinary Catheter Time of Insertion: 17:24 Data 05/04/25 03:17 05/04/25 03:17 Micro: Microbiology 05/03/25 14:15 Cryptococcal Antigen (CSF) - Final Cerebrospinal Fluid 05/03/25 14:15 Gram Stain - Final Cerebrospinal Fluid 05/02/25 13:25 Blood Culture - Preliminary Blood NEGATIVE TO DATE 05/02/25 13:28 Blood Culture - Preliminary Blood NEGATIVE TO DATE 05/02/25 15:42 Bacterial Antigens - Final Urine Kidney A&P Assessment and plan 1. Sepsis: SIRS: Tachycardic, Febrile, Leukocytosis Source: Unknown source. Possible meningitis. End organ damage: Acute infectious encephalopathy Lactic acid elevated. Repeat lactic shows normalization. Patient did receive full 30 mL/kg BW. Continue NS at 75 cc/h. Monitor blood pressures. Keep mean artery pressure 65 mmHg. Follow-up blood culture, negative MRSA swab, appreciate trend procalcitonin, negative bacterial antigen. Appreciate lumbar culture CSF results. Follow-up CSF cultures. Concern for aseptic meningitis given elevated protein no more than 119. Glucose also elevated to more than 79. CT of the jaw negative for concern for any abscess. Negative respiratory viral panel. Continue with IV meropenem. Continue with acyclovir 10 mg/kg body weight every 8 hourly. Monitor renal functions. Continue with IV hydration with NS at 75 cc/h. Discontinue vancomycin as MRSA swab negative and low concern for bacterial meningitis. De-escalate antibiotics as per culture results. 2. Encephalopathy acute: Most likely in setting of worsening dementia versus metabolic encephalopathy in setting of dementia. 3. Hypertension: Goal blood pressure less than 140/90 mmHg. Blood pressure stable. Does take lisinopril at home. Tachycardia resolved. Continue with metoprolol 25 mg twice daily for now. Holding off on lisinopril. 4. Type 2 diabetes mellitus: A1c 5.4 Does not need sliding scale for now. 5. Dementia: Continue with Celexa 20 mg daily, donepezil 10 mg nightly. Haldol 1 mg every 4 hours as needed for agitation. 6. Fever: 7. Aseptic meningitis: Plan: CODE STATUS: Spouse will be DPOA. Discussed in detail with spouse and daughter at bedside. Full code Clear liquid diet. Speech therapy evaluation. Protonix for PUD prophylaxis Heparin for DVT prophylaxis. Hold for now as patient is going for lumbar puncture. Transfer to [facility] floor. PDMP PDMP Reviewed: Not Reviewed Attestations 2 Medical Necessity Statement*: Requested hospitalization for management of altered mental status in setting of dementia, concern for aseptic meningitis Diagnoses Sepsis A41.9 Encephalopathy acute G93.40 Hypertension I10 Type 2 diabetes mellitus E11.9 Dementia F03.90 Fever R50.9 Aseptic meningitis G03.0
[2025-05-04 16:00] VITALS: BP 134/77; PULSE 93; RESP 15
[2025-05-04] MEDS: pantoprazole 40 mg SDV IVP (16:39)
[2025-05-04] MEDS: morphine 4 mg/mL SDV 1 mL 2 MG IVP (16:57)
[2025-05-04 19:38] VITALS: BP 139/85; PULSE 103; RESP 18; TEMP 37.4; O2SAT 93
[2025-05-04] MEDS: heparin 5,000 unit/mL INJ 1 mL 5000 UNIT SUBCUT (21:09)
[2025-05-05] VITALS (9 sets, daily range): BP systolic 126–142; BP diastolic 72–89; PULSE 62–89; RESP 16–20; TEMP 36.6–37.2; O2SAT 90–97; BMI 30.1
[2025-05-05 03:30] LABS: Hematocrit 35.2 % (37-53); Hemoglobin 11.40 g/dL (11.27-16.99); Mean Corpuscular HGB Conc 32.4 g/dL (30-55); Mean Corpuscular Hemoglobin 30.0 pg (27-33); Mean Corpuscular Volume 92.6 fl (82-101); Nucleated Red Blood Cells % 0 %; Platelet Count 255 10^3/cmm (157-399); Red Blood Count 3.80 10^6/uL (3.85-5.65); White Blood Count 8.85 10^3/uL (3.29-11.43)
[2025-05-05 03:58] LABS: Alanine Aminotransferase 29 U/L (0-41); Albumin Level 2.8 g/dL (3.5-5.2); Alkaline Phosphatase 128 U/L (40-130); Anion Gap 18.9 (5-19); Aspartate Amino Transferase 31 U/L (0-40); Blood Urea Nitrogen 19 mg/dL (8-23); Calcium 8.4 mg/dL (8.5-10.5); Carbon Dioxide 17 mmol/L (22-29); Chloride 106 mmol/L (98-107); Creatinine Clr Calc Pharmacy 62.7879; Globulin 3.0 g/dL (1.3-4.6); Glucose 133 mg/dL (65-115); Magnesium 1.8 mg/dL (1.7-2.3); Osmolality Calculated 290 mOsm/kg (285-295); Potassium 3.9 mmol/L (3.5-5.1); Sodium 138 mmol/L (136-145); Total Protein 5.8 g/dL (6.6-8.7)
[2025-05-05] MEDS: meropenem 1,000 mg SDV 1000 MG IVP (04:49)
[2025-05-05] MEDS: heparin 5,000 unit/mL INJ 1 mL 5000 UNIT SUBCUT ×3 (04:49→21:47)
[2025-05-05] MEDS: cefTRIAXone 1,000 mg SDV 1000 MG IVP (12:02)
--- NOTE | 2025-05-05 12:35 | PC.NURSE ---
report given to Samantha on med surg. Transported upstairs by Lori Graham RN.
--- NOTE | 2025-05-05 13:55 | P.PN_ITS ---
Subjective 2 Subjective: No acute events overnight. Patient is able to take oral medications now. Waking up with verbal stimulus otherwise sleeping. Sitter and family at bedside. Remains on room air. Vitals/I&O/Wt Last Vital Signs Temp 98.3 F 05/05/25 13:39 Pulse 88 05/05/25 13:39 Resp 17 05/05/25 13:39 BP 134/82 05/05/25 13:39 Pulse Ox 95 05/05/25 13:39 O2 Del Method Room Air 05/05/25 13:39 05/04/25 05/05/25 05/05/25 22:59 06:59 14:59 Intake Total 266 / 1532 1266 / 2798 266 / 266 Output Total 650 / 650 Balance -384 / 882 1266 / 2148 266 / 266 Weight last 48 hrs Weight 84.7 kg Weight 81.9 kg Physical Exam 2 Narrative: General: No acute distress, AO x1-2, fidgety HEENT: PERRLA, pupils bilaterally equal and reactive Chest: Normal vesicular breath sounds, no added sounds, equal good air entry bilaterally CVS: S1-S2 regular, no murmurs, no tachycardia, no gallops, no rubs Abdomen: Soft, nontender, no organomegaly, bowel sounds present Neuro: No focal deficits, no facial deformity, AO x3, power 5/5 in all limbs Urinary Catheter Management: Jeronimo: Cath Placed During This Visit: yes, but has since been removed by the nurse Reason for Continuing Indwelling Catheter: Decision to DC Catheter Urinary Catheter Date of Insertion: 05/02/25 Urinary Catheter Time of Insertion: 17:24 Date Urinary Catheter Removed: 05/04/25 Time Urinary Catheter Discontinued: 10:45 Data 05/05/25 03:11 05/05/25 03:11 Micro: Microbiology 05/03/25 14:15 Gram Stain - Final Cerebrospinal Fluid CSF Culture - Preliminary A&P Assessment and plan 1. Sepsis: SIRS: Tachycardic, Febrile, Leukocytosis Source: Unknown source. Possible meningitis. End organ damage: Acute infectious encephalopathy Lactic acid elevated. Repeat lactic shows normalization. Patient did receive full 30 mL/kg BW. Continue NS at 75 cc/h. Monitor blood pressures. Keep mean artery pressure 65 mmHg. Follow-up blood culture, negative MRSA swab, appreciate trend procalcitonin, negative bacterial antigen. Appreciate lumbar culture CSF results. Follow-up CSF cultures. Concern for aseptic meningitis given elevated protein no more than 119. Glucose also elevated to more than 79. CT of the jaw negative for concern for any abscess. Negative respiratory viral panel. Continue with IV meropenem. Continue with acyclovir 10 mg/kg body weight every 8 hourly. Monitor renal functions. Continue with IV hydration with NS at 75 cc/h. Discontinue vancomycin as MRSA swab negative and low concern for bacterial meningitis. De-escalate antibiotics as per culture results. 2. Encephalopathy acute: Most likely in setting of worsening dementia versus metabolic encephalopathy in setting of dementia. 3. Hypertension: Goal blood pressure less than 140/90 mmHg. Blood pressure stable. Does take lisinopril at home. Tachycardia resolved. Continue with metoprolol 25 mg twice daily for now. Holding off on lisinopril. 4. Type 2 diabetes mellitus: A1c 5.4 Does not need sliding scale for now. 5. Dementia: Continue with Celexa 20 mg daily, donepezil 10 mg nightly. Haldol 1 mg every 4 hours as needed for agitation. 6. Fever: 7. Aseptic meningitis: Plan: CODE STATUS: Spouse will be DPOA. Discussed in detail with spouse and daughter at bedside. Full code Clear liquid diet. Speech therapy evaluation. Protonix for PUD prophylaxis Heparin for DVT prophylaxis. Hold for now as patient is going for lumbar puncture. Plan for the day: Today patient is back to his baseline mentation. Seen with daughter at bedside. Working with physical therapy. More awake and alert today. Advance diet as per speech evaluation. Continue with IV acyclovir for 1 more day. Can probably transition to oral acyclovir tomorrow. Renal function stable. Continue with IV hydration for now. Blood cultures so far negative. Switch from meropenem to ceftriaxone. Can plan to finish course of ceftriaxone in 2 days. Follow-up culture results. Continue with Celexa, donepezil. Discharge plan: If patient continues to maintain his mentation at baseline can plan to discharge him on oral acyclovir use to finish 10-day course in next 24 hours. PDMP PDMP Reviewed: Not Reviewed Attestations 2 Medical Necessity Statement*: Requested hospitalization for management of altered mental status in setting of dementia, concern for aseptic meningitis Diagnoses Sepsis A41.9 Encephalopathy acute G93.40 Hypertension I10 Type 2 diabetes mellitus E11.9 Dementia F03.90 Fever R50.9 Aseptic meningitis G03.0
[2025-05-05] MEDS: pantoprazole 40 mg SDV IVP (17:13)
[2025-05-05 21:48] LABS: HSV 1 DNA Not Detected (Not Detected); HSV 2 DNA Not Detected (Not Detected)
[2025-05-06 00:09] VITALS: BP 112/55; PULSE 80; TEMP 36.8; O2SAT 94
[2025-05-06 04:00] VITALS: BP 115/73; PULSE 72; RESP 18; TEMP 36.4; O2SAT 94
[2025-05-06 04:55] LABS: Hematocrit 31.8 % (37-53); Hemoglobin 10.70 g/dL (11.27-16.99); Mean Corpuscular HGB Conc 33.6 g/dL (30-55); Mean Corpuscular Hemoglobin 29.9 pg (27-33); Mean Corpuscular Volume 88.8 fl (82-101); Nucleated Red Blood Cells % 0 %; Platelet Count 228 10^3/cmm (157-399); Red Blood Count 3.58 10^6/uL (3.85-5.65); White Blood Count 6.25 10^3/uL (3.29-11.43)
[2025-05-06] MEDS: heparin 5,000 unit/mL INJ 1 mL 5000 UNIT SUBCUT (05:07)
[2025-05-06 05:23] LABS: Alanine Aminotransferase 31 U/L (0-41); Albumin Level 2.7 g/dL (3.5-5.2); Alkaline Phosphatase 147 U/L (40-130); Anion Gap 15.6 (5-19); Aspartate Amino Transferase 31 U/L (0-40); Blood Urea Nitrogen 16 mg/dL (8-23); Calcium 8.2 mg/dL (8.5-10.5); Carbon Dioxide 19 mmol/L (22-29); Chloride 106 mmol/L (98-107); Creatinine Clr Calc Pharmacy 77.9506; Globulin 2.7 g/dL (1.3-4.6); Glucose 117 mg/dL (65-115); Osmolality Calculated 286 mOsm/kg (285-295); Potassium 3.6 mmol/L (3.5-5.1); Sodium 137 mmol/L (136-145); Total Protein 5.4 g/dL (6.6-8.7)
[2025-05-06 07:26] VITALS: BP 126/75; PULSE 79; RESP 17; TEMP 36.6; O2SAT 93
[2025-05-06] MEDS: cefTRIAXone 1,000 mg SDV 1000 MG IVP (08:24)
--- NOTE | 2025-05-06 10:38 | PM.DCS ---
Discharge Providers Date of Admission: 05/02/25 17:49 Date of Discharge: May 06, 2025 Attending Provider at Admission: Justino Ordonez MD Attending Provider at Discharge: Robetr Rankin DO Primary Care Provider: ANA PAULA Cota Diagnoses at Discharge Discharge Diagnosis 1. Sepsis: 2. Encephalopathy acute: 3. Hypertension: 4. Type 2 diabetes mellitus: 5. Dementia: 6. Fever: 7. Aseptic meningitis: Reason for Visit Reason for Visit: AMS Brief History: Mehul Clayton is a 69 year old male with past medical history of dementia, hypertension, hyperlipidemia presents to the ER today from home because of being more confused than usual, complaining of neck pain and back pain along with episodes of nausea which has been getting worse since Thursday. Today is Thursday. As per family member he has also been complaining of pain on the right side of the jaw. On presentation in the ER he was found to have a rectal temperature of more than 104 Fahrenheit, heart rate of 120 bpm with a blood pressure of 136/80 mmHg. Hospital Course Hospital Course Patient was admitted to the general medical floor. He was given IV antibiotics. A lumbar puncture was performed concerning for aseptic meningitis and the patient was started on acyclovir. The patient's mentation started to improve. There was a report of tooth/jaw pain and CT of the jaw and neck ruled out any odontogenic abscess. Patient slowly improved. He was started on Aricept for the underlying dementia. Patient started to tolerate diet. I reports from the progress note dated 05/05/2025 the patient was back to his usual mental status per the . Plans were made for discharge the following day. Today patient is reportedly again at baseline. He has no complaints. His vital signs are within normal limits. Physical Exam Narrative: Awake oriented times self only. Heart is regular normal S1-S2 without murmurs clicks gallops or rubs lungs are clear to auscultation anteriorly abdomen is soft nontender nondistended positive bowel sounds no hepatosplenomegaly extremities no clubbing cyanosis or edema Urinary Catheter Management: Jeronimo: Cath Placed During This Visit: yes, but has since been removed by the nurse Reason for Continuing Indwelling Catheter: Decision to DC Catheter Urinary Catheter Date of Insertion: 05/02/25 Urinary Catheter Time of Insertion: 17:24 Date Urinary Catheter Removed: 05/04/25 Time Urinary Catheter Discontinued: 10:45 Discharge Data Studies Completed and Pending Completed Studies During Hospitalization Category Date Time Status CT head wo con* [id number] Stat Cat Scan 05/02/25 13:[address] neck w con* [id number] Stat Cat Scan 05/02/25 17:41 Completed FL guided lumbarpunc dx* [id number] Stat Exams 05/03/25 08:00 Completed XR chest 1V portable [id number] Stat Exams 05/02/25 13:08 Completed Pending at discharge Category Date Time Status Blood Culture Stat Lab 05/02/25 13:25 Results CSF Culture & Gram Stain Stat Lab 05/03/25 14:15 Results Miscellaneous Test Routine Lab 05/03/25 14:15 Received VDRL on CSF Stat Lab 05/03/25 14:15 Received West Nile Virus AB Panel,CSF Stat Lab 05/03/25 14:15 Received Radiology Impressions Chest X-Ray 05/02/25 13:08 IMPRESSION: No acute pulmonary process. Head CT 05/02/25 13:34 IMPRESSION: 1. No acute intracranial hemorrhage or edema. 2. Mild to moderate cerebral and cerebellar atrophy. 3. Moderate small vessel disease. Neck CT 05/02/25 17:41 IMPRESSION: 1. Missing teeth and metallic dental restorations. No active periodontal disease appreciated allowing for metallic artifact and patient motion artifact. If clinical context warrants, dental consultation may be useful. 2. Left thyroid coarse calcification is indeterminate. 3. Advanced age-appropriate degenerative spinal changes, with other chronic/non-acute findings as described above. COMMENTS: 1. Examination limited by patient motion. 2. Consistent with the [employer]'s Incidental Findings Committee white paper (J Am Malu Radiol 2015): In patients aged 35 years and older with an incidental thyroid nodule equal to or greater than 1.[address], MRI or extrathyroidal US, further evaluation with dedicated thyroid US is recommended for patients with normal life expectancy and without comorbidities. For smaller nodules without suspicious features, no further evaluation or follow up is recommended. Lumbar Puncture Fluoroscopy 05/03/25 08:00 IMPRESSION: Fluoroscopically guided lumbar puncture. No immediate complications Laboratory Results WBC 6.25 10^3/uL (3.29-11.43) 05/06/25 03:42 RBC 3.58 10^6/uL (3.85-5.65) L 05/06/25 03:42 Hgb 10.70 g/dL (11.27-16.99) L 05/06/25 03:42 Hct 31.8 % (37-53) L 05/06/25 03:42 MCV 88.8 fl (82-101) 05/06/25 03:42 MCH 29.9 pg (27-33) 05/06/25 03:42 MCHC 33.6 g/dL (30-55) 05/06/25 03:42 RDW 11.8 % (12.1-15.1) L 05/06/25 03:42 Plt Count 228 10^3/cmm (157-399) 05/06/25 03:42 MPV 10.7 fL (7.4-10.4) H 05/06/25 03:42 Neut % (Auto) 75.2 % 05/06/25 03:42 Lymph % (Auto) 13.6 % 05/06/25 03:42 [place] % (Auto) 8.3 % 05/06/25 03:42 Eos % (Auto) 1.9 % 05/06/25 03:42 Baso % (Auto) 0.5 % 05/06/25 03:42 Neut # (Auto) 4.70 10^3/uL (1.8-7.7) 05/06/25 03:42 Lymph # (Auto) 0.9 10^3/uL (0.8-4.8) 05/06/25 03:42 [place] # (Auto) 0.5 10^3/uL (0.2-0.9) 05/06/25 03:42 Eos # (Auto) 0.1 10^3/uL (0.0-0.8) 05/06/25 03:42 Baso # (Auto) 0.0 10^3/uL (0.0-0.1) 05/06/25 03:42 Nucleated RBC % (auto) 0 % 05/06/25 03:42 Nucleated RBCs # 0.0 /100WBC 05/06/25 03:42 PT 14.50 SECONDS (12.1-14.9) 05/02/25 13:25 INR 1.05 (0.8-1.2) 05/02/25 13:25 Specimen Type Arterial 05/02/25 16:33 Sample Site Radial, right 05/02/25 16:33 ABG pH 7.42 (7.35-7.45) 05/02/25 16:33 ABG pCO2 31.8 mmHg (35-45) L 05/02/25 16:33 ABG pO2 51.3 mmHg (80.0-100.0) L 05/02/25 16:33 ABG PO2/FiO2 Ratio 244 05/02/25 16:33 ABG HCO3 20.7 mmol/L (22-26) L 05/02/25 16:33 ABG O2 Saturation 92.6 05/02/25 16:33 ABG Base Excess -2.9 mmol/L (-2.0-2.0) L 05/02/25 16:33 Kwaku Test Pos 05/02/25 16:33 A-a O2 Gradient 7.7 mmHg (5-10) 05/02/25 16:33 Hematocrit 38.6 % (42-52) L 05/02/25 16:33 Hgb O2 Saturation 91.3 % (95-100) L 05/02/25 16:33 Carboxyhemoglobin 1.2 %THgb (0.4-20.1) 05/02/25 16:33 Methemoglobin 0.2 % (0.4-1.5) L 05/02/25 16:33 Total Hemoglobin 12.6 g/dL (14-18) L 05/02/25 16:33 Sodium 141.0 mmol/L (131-143) 05/02/25 16:33 Potassium 3.9 mmol/L (3.5-5.0) 05/02/25 16:33 Glucose 184.0 mg/dL (70-115) H 05/02/25 16:33 Ionized Calcium 1.2 mmol/L (1.1-1.4) 05/02/25 16:33 O2 Delivery Device Room air 05/02/25 16:33 FiO2 21.0 % 05/02/25 16:33 Pipe Coverer And Insulator ID [place] 05/02/25 16:33 Sodium 137 mmol/L (136-145) 05/06/25 03:42 Potassium 3.6 mmol/L (3.5-5.1) 05/06/25 03:42 Chloride 106 mmol/L (98-107) 05/06/25 03:42 Carbon Dioxide 19 mmol/L (22-29) L 05/06/25 03:42 Anion Gap 15.6 (5-19) 05/06/25 03:42 BUN 16 mg/dL (8-23) 05/06/25 03:42 Creatinine 0.9 mg/dL (0.7-1.2) 05/06/25 03:42 GFR Calculation 83.4 mL/min (90-130) L 05/06/25 03:42 Glucose 117 mg/dL (65-115) H 05/06/25 03:42 Estimat Average Glucose 108 05/02/25 13:25 Hemoglobin A1c 5.4 % (4.0-6.0) 05/02/25 13:25 Calculated Osmolality 286 mOsm/kg (285-295) 05/06/25 03:42 Lactic Acid 3.0 mmol/L (0.5-2.2) H 05/02/25 13:25 Lactic Acid (Sepsis) 1.5 mmol/L (0.5-2.2) 05/02/25 15:20 Calcium 8.2 mg/dL (8.5-10.5) L 05/06/25 03:42 Phosphorus 2.6 mg/dL (2.5-4.5) 05/05/25 03:11 Magnesium 1.8 mg/dL (1.7-2.3) 05/05/25 03:11 Iron 19 ug/dL (59-158) L 05/02/25 13:25 TIBC 178 mcg/dl 05/02/25 13:25 % Saturation 10.6 % (20-50) L 05/02/25 13:25 Unsat Iron Binding 159 ug/dL (112-347) 05/02/25 13:25 Total Bilirubin 0.4 mg/dL (0.15-1.2) 05/06/25 03:42 AST 31 U/L (0-40) 05/06/25 03:42 ALT 31 U/L (0-41) 05/06/25 03:42 Alkaline Phosphatase 147 U/L (40-130) H 05/06/25 03:42 Troponin T Baseline 17 ng/L (0-15) H 05/02/25 13:25 Troponin T 120 Minute 16.09 ng/L (0-15) H 05/02/25 15:20 Delta Troponin T -0.91 ABS# (0-10) L 05/02/25 15:20 Troponin T Hi Sens 6Hr 19.85 ng/L (0-15) H 05/02/25 19:20 Troponin T Hi Sens 6Hr Delta 2.85 ng/L (0-12) 05/02/25 19:20 NT-Pro-B Natriuret Pep 179 pg/mL (0-125) H 05/02/25 13:25 Total Protein 5.4 g/dL (6.6-8.7) L 05/06/25 03:42 Albumin 2.7 g/dL (3.5-5.2) L 05/06/25 03:42 Globulin 2.7 g/dL (1.3-4.6) 05/06/25 03:42 Triglycerides 75 mg/dL (0-150) 05/03/25 03:51 Cholesterol 91 mg/dL (0-200) 05/03/25 03:51 LDL Cholesterol, Calc 49 mg/dL (50-129) L 05/03/25 03:51 HDL Cholesterol 27 mg/dL (60-100) L 05/03/25 03:51 LDL/HDL Ratio 1.81 RATIO (0.00-3.22) 05/03/25 03:51 Cholesterol/HDL Ratio 3.37 mg/dL (1.0-5.00) 05/03/25 03:51 Vitamin B12 371 pg/mL (232-1245) 05/02/25 13:25 Folate 5.2 ng/mL (4.5-32.2) 05/03/25 03:51 Procalcitonin 0.63 ng/mL (0-0.5) H 05/03/25 03:51 TSH 0.15 uIU/mL (0.27-4.20) L 05/02/25 13:25 Free T4 1.20 ng/dL (0.82-1.77) 05/02/25 13:25 Free T3 2.4 PG/ML (2.0-4.4) 05/02/25 13:25 Urine Color Dark yellow (Yellow) A 05/02/25 15:42 Urine Appearance Cloudy (CLEAR) A 05/02/25 15:42 Urine pH 5.0 (5-7) 05/02/25 15:42 Ur Specific [place] 1.027 (1.005-1.030) 05/02/25 15:42 Urine Protein 2+ (Negative) A 05/02/25 15:42 Urine Glucose (UA) Trace (Normal) H 05/02/25 15:42 Urine Ketones 1+ (Negative) H 05/02/25 15:42 Urine Blood Negative (Negative) 05/02/25 15:42 Urine Nitrate Negative (Negative) 05/02/25 15: Urine Bilirubin Negative (Negative) 05/02/25 15:42 Urine Urobilinogen 1.0 mg/dL (Negative) 05/02/25 15:42 Ur Leukocyte Esterase Negative (Negative) 05/02/25 15:42 Urine RBC 0-4 /hpf (0-2) H 05/02/25 15:42 Urine WBC 0-4 /hpf (0-5) H 05/02/25 15:42 Ur Squamous Epith Cells 0-4 /hpf (0-5) H 05/02/25 15:42 Amorphous Sediment 3+ /hpf 05/02/25 15:42 Urine Bacteria Trace /hpf (NONE) 05/02/25 15:42 Ur Random Sodium 80 mmol/L 05/02/25 15:42 Ur Random Potassium 68 mmol/L 05/02/25 15:42 Ur Random Chloride 88 mmol/L 05/02/25 15:42 CSF Appearance Clear (CLEAR) 05/03/25 14:15 CSF Color Colorless (COLORLESS) 05/03/25 14:15 CSF WBC 4 /uL (0-5) 05/03/25 14: CSF RBC 0 10^3/uL (0-0) 05/03/25 14:15 CSF Mononuclear # Auto 0.004 10^3/uL (50-90) L 05/03/25 14:15 CSF Mononuclear WBCs % 100 % (50-90) H 05/03/25 14:15 CSF Polynuclear WBCs # 0.000 10^3/uL (0-10) 05/03/25 14:15 CSF Polynuclear WBCs % 0 % (0-10) 05/03/25 14:15 CSF Diff Comment Yes 05/03/25 14: CSF Glucose 79 mg/dL (40-70) H 05/03/25 14:15 CSF Total Protein 119 mg/dL (15-45) H 05/03/25 14:15 CSF Mening/Enceph PCR See note 05/03/25 14:15 Nasal MRSA (PCR) Not detected (Negative) 05/02/25 20:40 Urine Opiates Screen Negative ng/mL (Negative) 05/02/25 15:42 Ur Barbiturates Screen Negative ng/mL (Negative) 05/02/25 15:42 Ur Phencyclidine Scrn Negative ng/mL (Negative) 05/02/25 15:42 Ur Amphetamines Screen Negative ng/mL (Negative) 05/02/25 15:42 U Benzodiazepines Scrn Negative ng/mL (Negative) 05/02/25 15:42 Urine Cocaine Screen Negative ng/mL (Negative) 05/02/25 15:42 U Marijuana (THC) Screen Positive ng/mL (Negative) H 05/02/25 15:42 Adenovirus (PCR) Not detected (NOT DETECT) 05/02/25 20:40 C. pneumoniae DNA (PCR) Not detected (NOT DETECT) 05/02/25 20:40 Coronavirus 229E (PCR) Not detected (NOT DETECT) 05/02/25 20:40 Herpes Simplex Source Results below 05/03/25 14:15 Human Metapneumovir PCR Not detected (NOT DETECT) 05/02/25 20:40 Influenza A (H1) PCR Not detected (NOT DETECT) 05/02/25 20:40 Influenza A (PCR) Negative (Negative) 05/02/25 14:59 Influ A (H1/09) PCR Not detected (NOT DETECT) 05/02/25 20:40 Influenza A (H3) PCR Not detected (NOT DETECT) 05/02/25 20:40 Influenza Type A (PCR) Not detected (NOT DETECT) 05/02/25 20:40 Influenza Type B (PCR) Not detected (NOT DETECT) 05/02/25 20:40 M. pneumoniae (PCR) Not detected (NOT DETECT) 05/02/25 20:40 Parainfluenza 1 (PCR) Not detected (NOT DETECT) 05/02/25 20:40 Parainfluenza 2 (PCR) Not detected (NOT DETECT) 05/02/25 20:40 Parainfluenza 3 (PCR) Not detected (NOT DETECT) 05/02/25 20:40 Parainfluenza 4 (PCR) Not detected (NOT DETECT) 05/02/25 20:40 RSV (PCR) Negative (Negative) 05/02/25 14:59 RSV Type A (PCR) Not detected (NOT DETECT) 05/02/25 20:40 RSV Type B (PCR) Not detected (NOT DETECT) 05/02/25 20:40 Entero/Rhino (PCR) Not detected (NOT DETECT) 05/02/25 20:40 SARS-CoV-2 (PCR) Not detected (NOT DETECT) 05/02/25 20:40 HSV 1 DNA Not detected (Not Detected) 05/03/25 14:15 HSV 2 DNA Not detected (Not Detected) 05/03/25 14:15 Vitals Last Vital Signs Temp 97.9 F 05/06/25 07:26 Pulse 79 05/06/25 07:26 Resp 17 05/06/25 07:26 BP 126/75 05/06/25 07:26 Pulse Ox 93 05/06/25 07:26 O2 Del Method Room Air 05/06/25 07:26 Discharge Plan Discharge Patient Disposition: Home Condition: Stable Prescriptions: New cefdinir 300 mg capsule 300 mg PO BID Qty: 4 0RF Rx Instructions: start tonight 05/06 citalopram 20 mg Tablet 20 mg PO DAILY Qty: 30 0RF donepezil 5 mg Tablet 10 mg PO BEDTIME Qty: 30 0RF metoprolol tartrate 25 mg Tablet 25 mg PO BID@0900,2100 Qty: 60 0RF acyclovir 800 mg tablet 800 mg PO 5XD Qty: 30 0RF Rx Instructions: space evenly during waking hours, approximately every 4 hours Continued metformin 1,000 mg tablet 1,000 mg PO BIDWMEAL lisinopril 10 mg tablet 10 mg PO DAILY pantoprazole 40 mg tablet,delayed release (DR/EC) 40 mg PO DAILY (DME) Cam boot See Rx Instructions .Route .MEDSUPPLY Qty: 1 0RF Rx Instructions: As directed cetirizine 10 mg tablet 10 mg PO DAILY simvastatin 40 mg tablet 40 mg PO QPM fluticasone propionate 50 mcg/actuation spray,suspension 1 spray intranasal DAILY olopatadine 0.2 % drops 1 drp ophthalmic (eye) DAILY cholecalciferol (vitamin D3) 50 mcg (2,000 unit) capsule 50 mcg PO DAILY solifenacin 10 mg tablet 10 mg PO DAILY Forensic Examiner OK for DC: Hospitalist Discharge Order = DC NOW: Discharge Order (Routine); Ordered 05/06/25 Ordered By: Robert Rankin Referrals: Denny Abreu FNP [Primary Care Provider, Nurse Practitioner] Referral Note: You will need to call your primary care provider Thursday to make a hospital discharge follow up in 4-7 days. Discharge Diet: Advance as tolerated Discharge Activity: Increase activity as tolerated Patient Instructions: Altered Mental Status (ED), Patient Portal & Joanna Instructions Discharge Attestations Time Spent in Discharge Care*: less than 30 min Quality Metrics Clinical Quality Measures [ No reported AMI, CVA or VTE this stay] Coding Level of Care Code Acute Code for Chg Fwd Diagnoses Sepsis A41.9 Encephalopathy acute G93.40 Hypertension I10 Type 2 diabetes mellitus E11.9 Dementia F03.90 Fever R50.9 Aseptic meningitis G03.0
--- NOTE | 2025-05-06 11:12 | PC.NURSE ---
Discharge instructions provided to pt and his family. Family verbalizes understanding. Pt to private vehicle via wheelchair with all belongings.
[2025-05-06 11:26] VITALS: BP 126/75; PULSE 79; RESP 17; TEMP 36.6; O2SAT 93
[2025-05-07 02:39] LABS: VDRL on CSF NON-REACTIVE
== END 2025-05-06 11:27 | disposition home or self-care (01) | DRG 871 ==
LOC: ER 16:41 → CSU 17:50 → MEDSURG 05-05 12:42
PROVIDERS: Admitting Provider Student in an Organized Health Care Education/Training Program; Emergency Provider Emergency Medicine; PCP Nurse Practitioner; Visit Provider Internal Medicine
DX: A41.9 Sepsis, unspecified organism (principal); G03.0 Nonpyogenic meningitis; G93.41 Metabolic encephalopathy; I10 Essential (primary) hypertension; E11.9 Type 2 diabetes mellitus without complications; F03.90 Unspecified dementia, unspecified severity, without behavioral disturbance, psychotic disturbance, mood disturbance, and anxiety; J44.9 Chronic obstructive pulmonary disease, unspecified; M10.9 Gout, unspecified; R00.0 Tachycardia, unspecified; K21.9 Gastro-esophageal reflux disease without esophagitis; E78.5 Hyperlipidemia, unspecified; Z79.84 Long term (current) use of oral hypoglycemic drugs; Z79.899 Other long term (current) drug therapy; Z88.0 Allergy status to penicillin; Z87.891 Personal history of nicotine dependence; Z11.52 Encounter for screening for COVID-19
CPT/HCPCS: 36415; 36600; 51702; 62328; 70450; 70491; 71045; 80051; 80053; 80061; 80306; 80503; 81001; 82330; 82436; 82607; 82746; 82805; 82945; 83036; 83540; 83550; 83605; 83735; 83880; 84100; 84133; 84145; 84157; 84300; 84439; 84443; 84481; 84484; 85025; 85610; 86403; 86592; 86788; 86789; 87040; 87070; 87075; 87205; 87327; 87486; 87530; 87581; 87633; 87637; 89050; 92523; 92610; 93005; 94664; 96365; 96367; 96372; 96375; 97162; 97530; 99285; J0131; J0133; J0696; J1630; J1644; J2020; J2185; J2270; J2405; J2470; J3373; J3475; J3490; J7030; J7040; J7050; J9999; Q0163